=== PATIENT | male | born 1990 | race Caucasian/White ===

== ENCOUNTER 2019-03-26 09:18 | Emergency (ER) | payer BC ==
[~2019-03-26] VITALS: Ht 182.8 cm; Wt 90.7 kg
[2019-03-26] MEDS ORDERED: ACULAR 0.5%3 ML OPH (09:44)
[2019-03-26] MEDS ORDERED: Tobrex Ophth S2.5 ML OPH (09:44)
== END 2019-03-26 10:00 | disposition home or self-care (01) ==
LOC: ED 09:18
DX: T15.81XA Foreign body in other and multiple parts of external eye, right eye, initial encounter (principal); X58.XXXA Exposure to other specified factors, initial encounter; Y93.89 Activity, other specified; Y92.89 Other specified places as the place of occurrence of the external cause; Y99.9 Unspecified external cause status